=== PATIENT | female | born 1995 | race Caucasian/White ===

== ENCOUNTER → 2017-01-23 | Outpatient (CLI) | payer OTHER | END | disposition home or self-care (01) | LOC: LAB 13:30 | DX: N91.2 Amenorrhea, unspecified (principal) | CPT/HCPCS: 36415; 84702 ==

== ENCOUNTER → 2017-01-30 | Outpatient (CLI) | payer OTHER ==
--- NOTE | 2017-01-30 16:08 | RAD ---
Examination: Obstetrical ultrasound Comparison: None available History: History of check size and dates. Findings: The uterus measures 8.6 x 6.2 x 5.8 cm. The right ovary measures 4.2 x 2.1 x 2.8 cm. The left ovary measures 3.5 x1.5 x 3.3 cm. Blood flow identified in the right and left ovaries. Intrauterine gestational sac identified with pole is identified with heart rate of 144 bpm. Yolk sac is identified. The crown-rump length measures 8 mm corresponds to 6 weeks and 5 days. Estimated gestational age by this ultrasound 09/20/2017. There is a 1.6 cm heterogeneous echogenicity identified in the subchorionic region probably a small subchorionic bleed. Impression: 1. Single living intrauterine identified with heart rate of 144 bpm. Estimated gestational age by this ultrasound is 6 weeks and 5 days. 2. Small probable subchorionic bleed.
== END | disposition home or self-care (01) ==
LOC: US 12:11 → EDUNIT# 12:30
DX: Z34.91 Encounter for supervision of normal pregnancy, unspecified, first trimester (principal); Z3A.01 Less than 8 weeks gestation of pregnancy
CPT/HCPCS: 76805; 76817